=== PATIENT | male | born 1995 | race Two or more races ===

== ENCOUNTER → 2019-09-17 | Outpatient (CLI) | payer OTHER | END | disposition home or self-care (01) | LOC: RAD 15:43 | PROVIDERS: ATTEND Physician Assistant Medical | DX: S39.011A Strain of muscle, fascia and tendon of abdomen, initial encounter (principal); X58.XXXA Exposure to other specified factors, initial encounter; Y93.89 Activity, other specified; Y92.89 Other specified places as the place of occurrence of the external cause; Y99.8 Other external cause status | CPT/HCPCS: 76705; 76857 ==

== ENCOUNTER 2019-09-19 11:55 | Outpatient (CLI) ==
[2019-09-19] MEDS ORDERED: OMNIPAQUE 350 MG/ML, 100ML BOTTLE ONE (14:47)
== END 2019-09-19 23:59 | disposition home or self-care (01) ==
LOC: RAD 11:55
PROVIDERS: ATTEND Physician Assistant Medical
DX: S39.011A Strain of muscle, fascia and tendon of abdomen, initial encounter (principal); R10.31 Right lower quadrant pain; K40.90 Unilateral inguinal hernia, without obstruction or gangrene, not specified as recurrent
CPT/HCPCS: 74177; Q9967